=== PATIENT | male | born 1985 | race Caucasian/White ===

== ENCOUNTER 2016-06-21 10:10 | Emergency (ER) | payer OTHER ==
[2016-06-21] MEDS ORDERED: Adacel (T-DAP) 0.5 ML VIAL ONE (10:29)
[2016-06-21] MEDS ORDERED: Ibuprofen 200 MG TAB ONE (10:42)
--- NOTE | 2016-06-21 10:47 | RAD ---
LEFT HAND 3 VIEWS: Date: 06/21/16 HISTORY: Injury, left hand pain. FINDINGS/IMPRESSION: No acute fracture or dislocation is seen. No radiopaque foreign body is identified. POS: [id number]
[2016-06-21] MEDS ORDERED: Acetaminophen/Codeine 30-300mg Tablet ONE (10:50)
== END 2016-06-21 11:25 | disposition home or self-care (01) ==
LOC: NAV ERS 10:10
DX: S61.412A Laceration without foreign body of left hand, initial encounter (principal); J45.909 Unspecified asthma, uncomplicated; F41.9 Anxiety disorder, unspecified; F17.210 Nicotine dependence, cigarettes, uncomplicated; W25.XXXA Contact with sharp glass, initial encounter
CPT/HCPCS: 90471; 90715

== ENCOUNTER 2016-08-06 15:22 | Emergency (ER) | payer OTHER ==
[2016-08-06] MEDS ORDERED: predniSONE 20 MG TAB ONE (15:42)
== END 2016-08-06 15:46 | disposition home or self-care (01) ==
LOC: NAV ERS 15:22
DX: J45.909 Unspecified asthma, uncomplicated (principal); F41.9 Anxiety disorder, unspecified; F17.210 Nicotine dependence, cigarettes, uncomplicated
CPT/HCPCS: 99284; J7506

== ENCOUNTER 2016-08-15 10:33 | Emergency (ER) | payer OTHER ==
[2016-08-15] MEDS ORDERED: Ibuprofen 800 MG TAB ONE (11:15)
--- NOTE | 2016-08-15 12:15 | RAD ---
THREE VIEWS OF THE LUMBAR SPINE HISTORY: Mid back strain. Heavy lifting yesterday. FINDINGS: There is a severe leftward scoliotic curvature of the lumbar spine. Possible hemivertebra at L1. L imited evaluation on this exam. Better interrogation with non-emergent CT is recommended. IMPRESSION: Presumed congenital/developmental changes, as above. POS: ARVIND
== END 2016-08-15 13:26 | disposition home or self-care (01) ==
LOC: NAV ERS 10:33
DX: S39.012A Strain of muscle, fascia and tendon of lower back, initial encounter (principal); J45.909 Unspecified asthma, uncomplicated; F41.9 Anxiety disorder, unspecified; F17.210 Nicotine dependence, cigarettes, uncomplicated; Z79.899 Other long term (current) drug therapy; Z79.52 Long term (current) use of systemic steroids; X50.0XXA Overexertion from strenuous movement or load, initial encounter
CPT/HCPCS: 72100

== ENCOUNTER 2017-10-06 16:38 | Emergency (ER) | payer OTHER ==
[2017-10-06] MEDS ORDERED: Ketorolac Tromethamine 60 MG/2 ML VIAL ONE (16:56)
== END 2017-10-06 17:24 | disposition home or self-care (01) ==
LOC: NAV ERS 16:38
DX: J45.20 Mild intermittent asthma, uncomplicated (principal); M79.1 Myalgia; F41.9 Anxiety disorder, unspecified; F17.210 Nicotine dependence, cigarettes, uncomplicated
CPT/HCPCS: 96372; 99406; J1885